=== PATIENT | female | born 1980 | race Caucasian/White ===

== ENCOUNTER → 2018-05-30 12:51 | Outpatient (CLI) | payer MEDICAID, SELFPAY ==
--- NOTE | 2018-05-30 12:53 | RAD_ITS ---
STUDY: X-RAY - RIGHT SHOULDER REASON FOR EXAM: Pain. TECHNIQUE: 4 view(s) of the shoulder. COMPARISON: Radiographs 09/30/2015. FINDINGS: Normal glenohumeral articulation. Normal acromioclavicular joint. Normal acromion. Normal humeral head and visualized proximal humerus. There is calcific tendinitis, larger than on the prior study. Normal visualized pulmonary apex. RAD/Shoulder min 2 Views IMPRESSION: Calcific tendinitis. Electronically Signed: Jas Buck MD at 14:43 EDT Tel , Service support ,
== END ==
PROVIDERS: Family Provider Orthopaedic Surgery; PCP Orthopaedic Surgery; Referring Provider Orthopaedic Surgery; Visit Provider Orthopaedic Surgery
DX: M75.31 Calcific tendinitis of right shoulder (principal)
CPT/HCPCS: 73030

== ENCOUNTER → 2018-05-30 12:55 | Outpatient (CLI) | payer MEDICAID, SELFPAY ==
--- NOTE | 2018-05-30 12:55 | RAD_ITS ---
STUDY: X-RAY - CERVICAL SPINE REASON FOR EXAM: Female, 37 years old. Pain. TECHNIQUE: 3 view(s) of the cervical spine were obtained. COMPARISON: None FINDINGS: Normal anterior atlantoaxial articulation. Normal odontoid process. Normal cervical lordosis. Normal vertebral bodies and endplates. Normal disc space heights. The soft tissue structures are unremarkable. There is no demonstrated fracture of the cervical spine. RAD/Cerv Spine 2 or 3 Views IMPRESSION: Normal x-ray examination of the visualized cervical spine. Electronically Signed: Davis Tobias MD at 19:57 EDT , Service support ,
== END ==
PROVIDERS: Family Provider Orthopaedic Surgery; PCP Orthopaedic Surgery; Referring Provider Orthopaedic Surgery; Visit Provider Orthopaedic Surgery
DX: M54.2 Cervicalgia (principal); M75.31 Calcific tendinitis of right shoulder
CPT/HCPCS: 72040; 73030

== ENCOUNTER → 2018-09-26 17:07 | Outpatient (CLI) | payer MEDICAID, SELFPAY ==
[2018-09-12 15:16] VITALS: BMI 25.3
--- NOTE | 2018-09-26 17:08 | MRI_ITS ---
STUDY: MRI RIGHT SHOULDER REASON FOR EXAM: Pain since injury in 2007, unable to abduct arm. TECHNIQUE: Standardized fat and water weighted pulse sequences were obtained in all 3 orthogonal planes. COMPARISON: Radiographs 05/30/2018 and MRI images 09/30/2015. FINDINGS: There is a signal void in the supraspinatus tendon (proton density coronal images 12, 13) measuring approximately 1 cm in length, mildly increased in size since the prior study with very mild adjacent inflammation (T2 coronal images 11-13). There is no discrete tear of the supraspinatus tendon. Normal infraspinatus tendon. Normal subscapularis tendon. Normal teres minor tendon. Normal supraspinatus muscle. Normal infraspinatus muscle. Normal subscapularis muscle. Normal teres minor muscle. Normal glenohumeral articulation. There is mild cystic change of the posterior aspect of the greater tuberosity. Normal biceps labral complex. Normal intracapsular long biceps tendon. Normal labrum. Normal capsulo- ligamentous complex. Normal acromioclavicular articulation. There is a Type II morphology (curved), with a neutral orientation. There is no subacromial-subdeltoid bursal fluid. Normal visualized coracohumeral and coracoacromial ligaments. Normal deltoid muscle. Normal trapezius muscle. MRI/Upper Ext Joint Only(Routine) IMPRESSION: Supraspinatus calcific tendinitis. No demonstrated rotator cuff tear. Electronically Signed: Jas Buck MD at 7:35 EDT Tel , Service support ,
== END ==
PROVIDERS: Family Provider Orthopaedic Surgery; PCP Orthopaedic Surgery; Referring Provider Orthopaedic Surgery; Visit Provider Orthopaedic Surgery
DX: M75.101 Unspecified rotator cuff tear or rupture of right shoulder, not specified as traumatic (principal)
CPT/HCPCS: 73221

== ENCOUNTER → 2018-10-01 09:48 | Outpatient (CLI) | payer MEDICAID, SELFPAY ==
[2018-10-01 09:14] VITALS: BMI 25.3
--- NOTE | 2018-10-01 09:49 | RAD_ITS ---
STUDY: X-RAY - CERVICAL SPINE REASON FOR EXAM: Female, 38 years old. Shoulder pain with right sided numbness. TECHNIQUE: 3 view(s) of the cervical spine were obtained on 4 images. COMPARISON: May 30, 2018 FINDINGS: Normal anterior atlantoaxial articulation. Normal odontoid process. Normal cervical lordosis. Normal vertebral bodies and endplates. Normal disc space heights. Normal visualized intervertebral neuroforamina. The soft tissue structures are unremarkable. RAD/Cerv Spine 2 or 3 Views IMPRESSION: Normal x-ray examination of the visualized cervical spine. Electronically Signed: Tank Alcocer MD at 11:28 EDT , Service support ,
== END ==
PROVIDERS: Family Provider Orthopaedic Surgery; PCP Orthopaedic Surgery; Referring Provider Orthopaedic Surgery; Visit Provider Orthopaedic Surgery
DX: M54.12 Radiculopathy, cervical region (principal)
CPT/HCPCS: 72040

== ENCOUNTER → 2018-10-09 11:03 | Outpatient (CLI) | payer MEDICAID, SELFPAY ==
[2018-10-01 09:14] VITALS: BMI 25.3
--- NOTE | 2018-10-09 11:06 | MRI_ITS ---
STUDY: MRI CERVICAL SPINE WITHOUT CONTRAST REASON FOR EXAM: Female, 38 years old. Neck pain, right arm pain and numbness and radiculopathy. TECHNIQUE: Standardized fat and water weighted pulse sequences were obtained in the sagittal and axial planes. COMPARISON: None FINDINGS: Normal foramen magnum and brainstem-cervical cord junction. Normal craniovertebral junction. Normal anterior atlantoaxial articulation. Normal odontoid process. Normal cervical lordosis. Normal vertebral bodies and posterior osseous elements. C2-3: Normal endplates. Normal disc height, signal and morphology. Normal central canal and intervertebral neural foramina. C3-4: Normal endplates. Normal disc height, signal and morphology. Normal central canal and intervertebral neural foramina. C4-5: Normal endplates. Normal disc height, signal and morphology. Normal central canal and intervertebral neural foramina. C5-6: Normal endplates. Normal disc height, signal and morphology. Normal central canal and intervertebral neural foramina. C6-7: Normal endplates. Normal disc height, signal and morphology. Normal central canal and intervertebral neural foramina. C7-T1: Normal endplates. Normal disc height, signal and morphology. Normal central canal and intervertebral neural foramina. Normal cervical cord. Normal visualized soft tissue structures. MRI/Spine Cervical (Routine) IMPRESSION: Normal unenhanced MR examination of the cervical spine. Electronically Signed: Ronni Coombs MD at 12:23 EDT Tel , Service support ,
== END ==
PROVIDERS: Family Provider Orthopaedic Surgery; PCP Orthopaedic Surgery; Referring Provider Orthopaedic Surgery; Visit Provider Orthopaedic Surgery
DX: M54.12 Radiculopathy, cervical region (principal)
CPT/HCPCS: 72141

== ENCOUNTER → 2018-11-13 07:15 | Outpatient (CLI) | payer MEDICAID, SELFPAY ==
[2018-10-11 09:23] VITALS: BMI 25.3
--- NOTE | 2018-11-13 10:00 | NEURO_ITS ---
NCS and/or EMG Patient Report Ordering Doctor: Barb Sanders DATE OF SERVICE: 11/13/18 This is a right upper extremity EMG and nerve conduction study performed on this 38-year-old female with numbness tingling and pain from her shoulder into her arm. Symptoms have been present since 2007, but became significantly worse several months ago for unclear reasons. She is healthy otherwise. Right upper extremity sensory and motor nerve conduction studies performed demonstrating mild to moderate prolongation of the median motor and sensory distal latency with preservation of amplitude and conduction velocities. The ulnar motor and sensory and radial sensory responses are normal. The median F wave is mildly prolonged. Right upper extremity needle electromyography is performed. Muscles evaluated included the abductor pollicis brevis, first dorsal interosseous, brachioradialis, biceps, triceps and deltoid muscles. The abductor pollicis brevis muscle did demonstrate 1-2+ fibrillation potentials with early recruitment and large motor units. All other C8 muscles were normal and all other muscles demonstrated normal insertional activity with absence of pathologic spontaneous activity. Impression: Findings consistent with moderate active carpal tunnel syndrome at the wrist. There is no evidence of radiculopathy. Dictated using [employer] software, not proofread
== END ==
PROVIDERS: Family Provider Family Medicine; PCP Family Medicine; Referring Provider Orthopaedic Surgery; Visit Provider Orthopaedic Surgery
DX: M54.12 Radiculopathy, cervical region (principal)
CPT/HCPCS: 95886; 95910

== ENCOUNTER 2018-12-11 06:26 | Day surgery (SDC) | payer MEDICAID, SELFPAY ==
[2018-11-15 09:50] VITALS: BMI 25.3
--- NOTE | 2018-11-15 11:34 | HP_ITS ---
Intake Vital Signs 11/14/18 Body Mass Index (BMI) 47.7 11/14/18 Height 5 ft 2 in 11/14/18 Weight: 253 lb 11/14/18 Body Mass Index (BMI) 46.3 11/14/18 Blood Pressure 141/82 H 11/14/18 Blood Pressure Location Rt brachial 11/14/18 Blood Pressure Position Sitting 11/14/18 Respiratory Rate 16 11/14/18 Pulse Rate 92 11/14/18 Pulse Source Monitor 11/14/18 Temperature 97.9 F 11/14/18 Temperature Source Oral 11/14/18 Pulse Ox 96 11/14/18 Oxygen Delivery Method room air Intake Visit Reasons: EGD & C-Scope Anemia Chief Complaint: Referred for anemia evaluation. Continuity Coordinator Required: No Is patient in pain?: No Allergies adhesive Allergy (Verified 11/14/18 14:31) Rash Penicillins [PCN] Allergy (Verified 11/14/18 14:31) Swelling Medications Gabapentin [Neurontin] 600 mg PO BID 07/11/14 [History Confirmed 11/14/18] Simvastatin 10 mg PO DAILY 07/11/14 [History Confirmed 11/14/18] Albuterol IH (ProAir) [Proair Hfa] 1 puff INHALATION Q6H PRN PRN 02/10/15 [History Confirmed 11/14/18] Allopurinol [Zyloprim] 100 mg PO DAILY 02/10/15 [History Confirmed 11/14/18] Apixaban [Eliquis] 5 mg PO BID #60 tab 02/11/15 [Rx Confirmed 11/14/18] Omeprazole [Prilosec] 20 mg PO DAILY 07/09/16 [History Confirmed 11/14/18] Lisinopril [Zestril] 10 mg PO DAILY #30 tab 07/13/16 [Rx Confirmed 11/14/18] Cyanocobalamin (Vitamin B-12) [B-12 Compliance] 1,000 mcg SUBCUT QMONTH 09/30/16 [History Confirmed 11/14/18] Diclofenac Sodium 25 mg PO TID 11/13/18 [History Confirmed 11/14/18] Iron Polysaccharide Complex [Ferrex 150] 150 mg PO DAILY 11/13/18 [History Confirmed 11/14/18] Levothyroxine [Synthroid] 125 mcg PO DAILY 11/13/18 [History Confirmed 11/14/18] Potassium Chloride [Klor-Con 10] 10 meq PO DAILY 11/13/18 [History Confirmed 11/14/18] Vancomycin [Vancocin] 125 mg PO Q6H 11/13/18 [History Confirmed 11/14/18] metroNIDAZOLE [Flagyl] 500 mg PO Q8H 11/13/18 [History Confirmed 11/14/18] PFSH Medical History Hypertension (Chronic) Sjogrens syndrome (Chronic) Chronic kidney disease (CKD), stage III (moderate) (Chronic) History of fibromyalgia (Chronic) Pulmonary embolism, bilateral (Chronic) Right ventricular dysfunction (Chronic) Pulmonary HTN (Chronic) Hyponatremia (Acute) Nausea & vomiting (Acute) Morbid obesity with BMI of 45.0-49.9, adult (Chronic) Hypothyroidism (Chronic) Hyperuricemia (Chronic) HLD (hyperlipidemia) (Chronic) Anemia (Chronic) Diarrhea with dehydration (Acute) Surgical History Hx of cholecystectomy (Acute) Hx of appendectomy (Acute) History of carpal tunnel release of both wrists (Acute) Hx of tubal ligation (Acute) Hx of arthroscopic knee surgery (Acute) Family History Brother Bone cancer Sister Lung cancer Sister Cervical cancer Hypertension Mother Uterine cancer Father Hypertension Myocardial infarction Brother Myocardial infarction Social History (Updated 11/15/18 @ 13:33 by Matt Allen MD) Smoking Status: Never smoker second hand exposure: No alcohol intake: never substance use type: does not use caffeine: Yes what type of physical activity do you participate in: none frequency: does not exercise HPI HPI HPI: BREANNE MCNAMARA, is a 74 F who presents to the office today for HPI HPI Surgical H&P: Yes HPI: BREANNE MCNAMARA, is a 74 F who presents to the office today for iron deficiency anemia. Patient reports she was very tired and fatigued and had been found to have anemia. Patient noticed some blood today in her stool but this is the first time. Her last colonoscopy was over 10 years ago. She has had an EGD in the past with does not run or when. She denies family history of colon cancer. She is currently being treated for C. 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 ROS General General: Yes weight change and fatigue Musc Musculoskeletal: Yes back problems, arthritis and gout Cardio Cardiovascular: Yes high blood pressure; no murmur, pacemaker, heart disease, atrial fibrillation, heart attack, heart stent, palpitations, shortness of breat with exertion or chest pain Psych Psychiatric: No depression or anxiety Resp Respiratory: Yes shortness of breath, No sleep apnea, Yes cough, No COPD, No asthma, No emphysema, No wheezing Gastro Gastrointestinal: Yes abdominal pain, Yes nausea or vomiting, No diarrhea, No constipation, Yes blood in stool, Yes acid reflux, Yes hemorrhoids, No ulcers, No gallbladder problem, No black,tarry stools Neel Hematologic: Yes blood thinners, Yes blood clots Exam Const General: cooperative Orientation: alert, oriented x3 Resp Effort & Inspection: normal respiratory effort Auscultation: clear to auscultation bilaterally Cardio Rate: regular rate Rhythm: regular rhythm Heart Sounds: no murmurs GI Inspection: non-distended Palpation: soft, nontender Assessment & Plan Problems 1. Anemia, unspecified type D64.9 Plan The patient has iron deficiency anemia and is requiring upper and lower scope to evaluate. Currently the patient is being treated for C. difficile. She says her stools have been thickening but she is still having soft stool. The patient notes that she has come off of her blood thinner in the past for back injections. I have advised her to hold these blood thinners for 2 days prior to endoscopy. I explained endoscopy in detail to the patient. I explained the risks including but not limited to stroke or heart attack with anesthesia, perforation of the GI tract, bleeding, infection. I explained that any of these could necessitate further emergency surgery. The patient understands and all questions were answered sufficiently. The patient wishes to proceed with procedure. I would like to hold off on performing endoscopy until at least 3 weeks from now when the inflammation in her colon has subsided. Matt Allen MD Pager: [facility] [address] [place] [address], [address] [place] [address] Office: Orders Orders: Colonoscopy Today D64.9 EGD Today D64.9 Coding Level of Care Code Off vis,new,level 3 Diagnoses Anemia, unspecified type D64.9 ??Anemia type: unspecified type 11/15/18 1333 <Electronically signed by Matt crump MD> Date _ Matt Allen MD
[2018-12-09 13:40] LABS: Hematocrit 37.1 % (37-47); Hemoglobin 11.5 g/dL (12.0-15.0); Mean Corpuscular Hgb 27.2 pg (27.0-32.0); Mean Corpuscular Volume 87.7 fL (81-99); Platelet Count 341 K/mm3 (150-450); RBC Distribution Width CV 13.8 % (11.6-14.6); RBC Distribution Width SD 44.2 fl (35.1-43.9); Red Blood Count 4.23 M/mm3 (4.2-5.4); White Blood Count 5.3 K/mm3 (4.4-11.0)
[2018-12-09 13:48] LABS: International Normalized Ratio 1.2; Prothrombin Time (Protime)PT. 14.9 SECONDS (11.7-14.9)
[2018-12-09 13:49] LABS: Partial Thromboplast Time 36.8 Seconds (24.1-36.2)
[2018-12-09 14:19] LABS: AST(SGOT) 16 U/L (15-37); Alanine Aminotransfer ALT/SGPT 17 U/L (13-56); Alkaline Phosphatase 56 U/L (45-117); Bilirubin, Direct 0.14 mg/dL (0.00-0.30); Globulin 3.9 g/dL (2.2-4.2); Protein, Total 7.9 g/dL (6.4-8.2); Thyroid Stim Hormone (TSH) 2.74 uIU/mL (0.358-3.74)
[2018-12-11] VITALS (9 sets, daily range): BP systolic 98–132; BP diastolic 68–95; PULSE 77–113; RESP 16; TEMP 36.4–37.1; O2SAT 96–100; BMI 24.4
[2018-12-11 06:58] LABS: Internal QC Validated? YES +Cl - CLEAR BKGD; Pregnancy, Urine Negative Negative
[2018-12-11] MEDS: Lactated Ringers 1,000 ML 100 ML IV ×2 (07:03→10:18)
[2018-12-11] MEDS: Cefazolin 2 GM in 0.9% Normal Saline 100 ML IV (07:54)
--- NOTE | 2018-12-11 08:02 | HP.PCM_ITS ---
History and Physical [facility] Medical Records Department [address] [place] [address] I have re-examined the patient. There are no clinical changes since date of exam. History and Physical 11/15/18 1134 MR#: [id number] Acct: [id number] Name: EMILY MURRAY Rep #: [id number] : 1980 38 From: Barb Sanders DO PCP: Kiera Murray MD Status: PRE SDC Location: SDC Intake Vital Signs 11/14/18 Body Mass Index (BMI) 47.7 11/14/18 Height 5 ft 2 in 11/14/18 Weight: 253 lb 11/14/18 Body Mass Index (BMI) 46.3 11/14/18 Blood Pressure 141/82 H 11/14/18 Blood Pressure Location Rt brachial 11/14/18 Blood Pressure Position Sitting 11/14/18 Respiratory Rate 16 11/14/18 Pulse Rate 92 11/14/18 Pulse Source Monitor 11/14/18 Temperature 97.9 F 11/14/18 Temperature Source Oral 11/14/18 Pulse Ox 96 11/14/18 Oxygen Delivery Method room air Intake Visit Reasons: EGD & C-Scope Anemia Chief Complaint: Referred for anemia evaluation. Truer Pinion And Wheel Required: No Is patient in pain?: No Allergies adhesive Allergy (Verified 11/14/18 14:31) Rash Penicillins [PCN] Allergy (Verified 11/14/18 14:31) Swelling Medications Gabapentin [Neurontin] 600 mg PO BID 07/11/14 [History Confirmed 11/14/18] Simvastatin 10 mg PO DAILY 07/11/14 [History Confirmed 11/14/18] Albuterol IH (ProAir) [Proair Hfa] 1 puff INHALATION Q6H PRN PRN 02/10/15 [History Confirmed ] Allopurinol [Zyloprim] 100 mg PO DAILY 02/10/15 [History Confirmed 11/14/18] Apixaban [Eliquis] 5 mg PO BID #60 tab 02/11/15 [Rx Confirmed 11/14/18] Omeprazole [Prilosec] 20 mg PO DAILY 07/09/16 [History Confirmed 11/14/18] Lisinopril [Zestril] 10 mg PO DAILY #30 tab 07/13/16 [Rx Confirmed 11/14/18] 1
--- NOTE | 2018-12-11 08:03 | PCM.DC.ORTHO ---
Discharge Diet: No Restrictions - follow up on sunday for dressing change and brace adjustment, call with concerns, move elbow and hand as tolerated, call with concerns Discharge Activity: May Not Drive May shower in (days): 1 Ice area for (Minutes): 20 - Every hour while awake. Weight Bearing Status: Weight bearing as tolerated Keep extremity elevated above heart level: Operative Extremity Call your doctor if your incision/area has: Continuous Slow Oozing, Sudden Increased Bleeding, Increased Pain/ Swelling, Increased Redness, Foul Smelling Discharge Call your doctor if you observe: Fever of 101 or Higher, Coldness, Increased Pain, Numbness or Tingling, Change in Color, Calf discomfort Allergies/Adverse Reactions: Allergies hydrocodone [From Vicodin] Adverse Reaction (Severe, Unverified 12/11/18 06:51) Itching Medications to take at Discharge gabapentin 300 mg capsule 300 mg PO QHS 10/11/18 omeprazole 40 mg capsule,delayed release 40 mg PO QHS #30 cap 10/11/18 Acetaminophen [Tylenol Extra Strength] 500 - 1,000 mg PO Q6H PRN PRN 12/04/18 Oxycodone HCl/Acetaminophen [Percocet 5/325] 1 - 2 tab PO Q6H PRN PRN 5 Days #28 tab 12/11/18 Zolpidem Tartrate [Ambien (Generic)] 5 mg PO QHS PRN PRN #14 tab 12/11/18 The following prescriptions were given: Zolpidem Tartrate [Ambien (Generic)] 5 mg PO QHS PRN PRN #14 tab PRN Reason: Insomnia Transmission Status: Received by [facility] Oxycodone HCl/Acetaminophen [Percocet 5/325] 1 - 2 tab PO Q6H PRN PRN 5 Days #28 tab PRN Reason: Pain Transmission Status: Received by [facility] Primary Care Physician: Kiera Murray MD [Primary Care Provider] - Test Results: Test results from this visit will be discussed in further detail at your follow-up appointment, if applicable. Please Follow Up With: Barb Sanders, DO - [phone]
--- NOTE | 2018-12-11 08:03 | PCM.OPRPT ---
Report of Operation Date of Procedure: 12/11/18 Pre-Operative Diagnosis: right shoulder calcific tendinitis Post-Operative Diagnosis: same Surgery/Procedure Performed:: right shoulder arthroscopy, calcific tendinitis debridement, rotator cuff repair Type of Anesthesia:: General, General/Regional Anesthesiologist: Umair Can Estimated Blood Loss (mL): minimal Fluids Replaced: 700cc lr Description of Procedure: Preop note Patient is a 38-year-old female with continued right shoulder pain recalcitrant to injections and conservative treatment. MRI confirms calcific tendinitis in the supraspinatus. Risk benefits and alternatives were discussed with patient. Risks including but not limited to blood loss, blood clot, infection, neurovascular, failure procedure, loss of life and loss of limb. Patient is aware like proceed with right calcific tendinitis debridement possible rotator cuff repair after debridement of calcific tendinitis of leave the hole in the rotator cuff. Operative note Patient seen and examined preoperative holding area. Right shoulder was marked. Patient brought to the operating room and placed supine on the operating table. Signed, anesthesia, antibiotics were administered. The right arm was prepped and draped in usual sterile fashion after beachchair beachchair positioning was maintained. [place] through beachchair position we did recheck her blood pressure which was appropriately treated. All bony promises well-padded SCDs placed on her bilateral lower externally's. We then marked out a bony [place] for portal placement. We insufflated the posterior glenohumeral joints with 60 cc of normal saline. Please note the prior to that timeout was performed. We then began a diagnostic arthroscopy. We created our left posterior portal with 11 blade the glenohumeral joint was intact there were no loose bodies in the inferior recess. The anterior portal was created created under direct visualization. The subscap was intact to probing. The biceps was intact and stable probing. There were no other issues intra-articular. The moved the scope into the subacromial space it was difficult to get into the subacromial space due to the amount of bursitis which was extensive throughout. Created a lateral portal under direct visualization. Was hyperemic and thickened throughout. We then resected the bursa we able to visualize the rotator cuff we then palpated to find the calcific deposit which was palpated and then we used a shaver to debride the about a centimeter centimeter half area of calcific tendinitis. When this was successfully resected we had a pretty large hole in the rotator cuff. We then placed sutures between the edges of the rotator cuff and then brought this down to a swivel lock laterally. The shoulder was irrigated with copious nonsterile saline. All bleeders were coagulated then were encountered. Sterile dressings were applied after the portals were closed with interrupted nylon sutures. Sling was applied to the right arm next Postoperative note Pain and Ambien prescriptions at Hospital pharmacy We will give pictures to family in 2 weeks Follow-up on Sunday with Clarence Call with increased pain numbness tingling or further issues arise This note was generated with [employer] dictation software. It may contain incorrect words, spelling, and punctuation that were not noted in checking the note before signing.
[2018-12-11] MEDS: Mupirocin Ointment 22gm Tube 1 APPLIC (09:14)
--- NOTE | 2018-12-11 09:18 | PCM.HP.BLA ---
History and Physical Intake I have re-examined the patient. There are no clinical changes since date of exam. Vital Signs 10/01/18 Body Mass Index (BMI) 25.3 Intake Visit Reasons: R. SHOULDER Chief Complaint: Excessive menstrual bleeding Allergies acetaminophen [From Vicodin] Adverse Reaction (Severe, Unverified 02/15/17 10:10) Itching hydrocodone [From Vicodin] Adverse Reaction (Severe, Unverified 02/15/17 10:10) Itching PFSH Medical History (Updated 03/12/17 @ 14:56 by Ruddy Posada MD) H/O tooth extraction (Acute) Miscarriage (Acute) No known problems (Acute) Surgical History (Updated 02/15/17 @ 10:27 by Aury Moreno) No history of previous surgery (Acute) Family History (Updated 02/14/17 @ 14:18 by Jina Munoz) Father Lung cancer Brother Cancer Sister Cancer Social History (Updated 10/01/18 @ 14:38 by Barb Sanders DO) Smoking Status: Never smoker HPI R. SHOULDER: Details: Parts of this documentation were recorded by a scribe, this documentation accurately reflects the service provided and the decisions made by me, Barb Sanders DO 10/01/18 0911. EMILY AHMADI is a 38 year old F here today for F/U after having right shoulder MRI completed. Patient states that she is still have intense anterior shoulder pain. States she does occasionally have numbness/tingling that readiates down into her hand and states that is she tries to hold anything with her right arm she has noted weakness. ROS Const Reports system reviewed and no additional complaints, except as docu Eyes Reports system reviewed and no additional complaints, except as docu ENT Reports system reviewed and no additional complaints, except as docu Card Reports system reviewed and no additional complaints, except as docu Resp Reports system reviewed and no additional complaints, except as docu GI Reports system reviewed and no additional complaints, except as docu Musc Reports as per HPI Skin/Breast Reports system reviewed and no additional complaints, except as docu Neuro Yes system reviewed and no additional complaints, except as docu Psych Reports system reviewed and no additional complaints, except as docu Endo Reports system reviewed and no additional complaints, except as docu Neel/Lymph Reports system reviewed and no additional complaints, except as docu Aller/Immun Reports system reviewed and no additional complaints, except as docu Ortho Exam Right Shoulder Testing: Positive Hawkin's and PROM-Forward Elevation 0-180; negative AROM-Forward Elevation 0-180 Assessment & Plan Problems 1. Calcific tendinitis of right shoulder M75.31 2. Cervical radicular pain M54.12 Plan Personally reviewed the MRI and explained she has calcific tendonitis, her treatment options are do nothing, steroid injection, shoulder arthroscopy for debridement. Reviewed the possibility of needing a repair if the debridement of the calcium is too great. Patient elects to proceed with another injection but due to the radiating pain we will order neck xrays and an MRI prior to surgery for the shoulder as her radiculopathy is getting worse, weakness, and exercises have not helped recentlly. Follow up after mri of c spine or sooner if pain, swelling, numbness or associated symptoms, or concerns develop. All questions answered. Patient in agreement of plan. Orders Orders: Cerv Spine 2 or 3 Views Today M54.12 Spine Cervical (Routine) Today M54.12 Coding Level of Care Code Off vis,est,level 4 Diagnoses Calcific tendinitis of right shoulder M75.31 Cervical radicular pain M54.12
[2018-12-11] MEDS: dexAMETHasone 10 MG/ML Vial 8 MG IV (12:03)
== END 2018-12-11 16:40 | disposition home or self-care (01) ==
LOC: SDC 06:27 → AC 06:28
PROVIDERS: Anesthesiology; Family Provider Family Medicine; PCP Family Medicine; Referring Provider Orthopaedic Surgery; Visit Provider Orthopaedic Surgery
PROC: (CPT 29827; principal; 2018-12-11 07:40)
DX: M75.31 Calcific tendinitis of right shoulder (principal); M54.12 Radiculopathy, cervical region; K21.9 Gastro-esophageal reflux disease without esophagitis; E05.90 Thyrotoxicosis, unspecified without thyrotoxic crisis or storm
CPT/HCPCS: 01630; 29827; 64415; 36415; 80076; 81025; 84443; 85027; 85610; 85730; J7120; J2405

== ENCOUNTER 2018-12-13 13:22 | Observation (INO) | payer MEDICAID, SELFPAY ==
[2018-12-11 06:52] VITALS: BMI 24.4
[2018-12-13] VITALS (8 sets, daily range): BP systolic 109–139; BP diastolic 61–100; PULSE 67–112; RESP 16–18; TEMP 36.8; O2SAT 96–100; BMI 23.8; BMI 24.7; BMI 24.6
--- NOTE | 2018-12-13 13:50 | ED.DCSUM_ITS ---
- ER Visit Summary Date of Service: 12/13/18 Chief Complaint: Dizziness History of Present Illness: The patient is a 38 F presenting with dizziness, nausea. Patient states this started early this morning. She had right rotator cuff surgery on Sunday per Dr. Sanders. She has been taking Percocet wh ich has been controlling her pain. She complains of nausea and dry heaves. She denies chest pain or shortness of breath. Denies syncope. Denies other complaints. Physical Examination: Vitals are stable. Patient is afebrile. Alert no acute distress. HEENT exam is unremarkable. Neck is supple. Lungs are clear and equal bilaterally. Heart is regular rate and rhythm. Abdomen is soft nontender nondistended. Extremities right shoulder dressing clean dry and intact. Neurovascularly intact distally Skin is warm and dry. No focal neurologic deficit. Remainder of exam is unremarkable. Emergency Department Course and Treatment: Patient was given IV fluids, Zofran. EKG is sinus rate of 78 with no acute ischemic changes. CBC normal except for hemoglobin 10.5 which is near her baseline. Chemistries normal except for potassium 3.4. Troponin is negative. Patient continues to be dizzy and nauseated. She is given Phenergan. She is given additional IV fluids. With orthostatics her blood pressure remained stable and her heart rate increases. Discussed with the hospitalist for observation. Disposition: Observation Impression: Near syncope, intractable nausea This note was generated with [employer] dictation software. It may contain incorrect words, spelling, and punctuation that were not noted in review of the chart prior to signing ED Disposition - Plan for ED Patient:
--- NOTE | 2018-12-13 13:55 | NURSING ---
NO OLD EKGS
[2018-12-13] MEDS: Ondansetron 4 MG/2 ML Vial IV ×2 (14:10→18:50)
[2018-12-13] MEDS: 0.9% Normal Saline 1,000 ML 999 ML IV ×2 (14:10→16:10)
[2018-12-13 14:19] LABS: Absolute Lymphocyte Count 1.62 X10^3/uL (0.83-4.51); Absolute Neutrophil Count 3.3 X10^3/uL (2.0-7.7); Basophil# 0.04 X10^3/uL; Basophil% 0.7 % (0-1); Eosinophil# 0.04 X10^3/uL; Eosinophils% 0.7 % (0-5); Hematocrit 34.3 % (37-47); Hemoglobin 10.5 g/dL (12.0-15.0); Lymphocyte # 1.62 X10^3/ul (4.0); Lymphocyte % 29.8 % (19-41); Mean Corp Hgb Conc 30.6 g/dL (32-36); Mean Corpuscular Hgb 27.3 pg (27.0-32.0); Mean Corpuscular Volume 89.3 fL (81-99); Mean Platelet Vol. 9.7 fl (6.2-12.0); Monocyte% 7.4 % (0-10); NRBC Flagged by Analyzer 0 % (0-5); Neutrophil # 3.33 X10^3/uL (2.7-7.7); Neutrophil % 61.2 % (47-70); Platelet Count 272 K/mm3 (150-450); RBC Distribution Width CV 14.2 % (11.6-14.6); Red Blood Count 3.84 M/mm3 (4.2-5.4); White Blood Count 5.4 K/mm3 (4.4-11.0)
[2018-12-13] MEDS: Morphine 4 MG/ML Syringe IV (14:21)
[2018-12-13 14:35] LABS: Anion Gap 5 (5-15); BUN 5 mg/dL (7-18); BUN/Creat Ratio 6.9 RATIO (10-20); Calcium,Total 8.8 mg/dL (8.5-10.1); Chloride 105 mmol/L (98-107); Creatinine, Serum 0.72 mg/dL (0.55-1.02); EST Glomerular Filtration Rate 97 mL/min (>60); Est Glom Filt Rate - Afr Amer 118 mL/min (>60); Estimated Creatinine Clearance 85.43 ml/min; Glucose 97 mg/dL (74-106); Potassium 3.4 mmol/L (3.5-5.1); Sodium Level 141 mmol/L (136-145)
--- NOTE | 2018-12-13 14:55 | CT_ITS ---
STUDY: CTA CHEST REASON FOR EXAM: Female, 38 years old. Nausea and dizziness following recent rotator cuff surgery. RADIATION DOSAGE (If Supplied By Facility): CTDIvol = ( 10.22 ) mGy, DLP = ( 344.54 ) mGycm TECHNIQUE: The examination was performed with the intravenous administration of IV 100mL Isovue-370 100. Post-processing of the angiographic images was performed, with multiplanar reformation and 3D reconstruction. Individualized dose optimization techniques were used for this CT. COMPARISON: None. FINDINGS: Normal enhancement of the main pulmonary artery and right and left pulmonary arteries. Normal enhancement of the bilateral peripheral pulmonary arteries. There is no demonstrated pulmonary embolism. Normal thoracic aorta and visualized great vessels. There is no demonstrated aortic dissection. Normal heart and pericardium. Normal mediastinum. Normal hilar regions. Normal visualized trachea and bronchi. The lungs are well expanded. Normal pulmonary parenchyma. Minimal right pleural effusion and minimal right basilar atelectasis. Mild increased markings at the left lung base. Normal chest wall structures. Normal osseous structures. Small hiatal hernia. CT/CTA Chest W/WO Contrast IMPRESSION: Minimal bibasilar atelectasis and right pleural effusion. Electronically Signed: Chay Coello, at 15:40 EDT , Service support ,
[2018-12-13] MEDS: proMETHazine 25 MG/ML Syringe 6.25 MG IV (16:09)
--- NOTE | 2018-12-13 16:58 | NURSING ---
HOSPITALIST PAGED DR HAIRSTON CALLED BACK
--- NOTE | 2018-12-13 17:05 | NURSING ---
PCU DIZZINESS PAINTSIL
--- NOTE | 2018-12-13 17:20 | PCM.HP.STD ---
<Maynor Yip - Last Filed: 12/13/18 17:20> Problem List (1) Dizziness Status: Acute (2) Calcific tendinitis Status: Chronic (3) GERD (gastroesophageal reflux disease) Status: Chronic (4) VWD (von Willebrand's disease) Status: Chronic (5) Anemia Status: Chronic History of Present Illness Date of Admission: 12/13/18 Chief Complaint: dizziness The patient is a 38 year old F with pmhx of von willebrands disease, GERD, and calficic tendinosis of the right should post op rotator cuff repair POD#[address] Sanders, who presents to the ER with dizziness. This began this AM at about 3 AM. She woke up to use the bathroom and felt dizzy. After the surgery she was prescribed ambien, percocet, and gabapentin. Last night she did not take ambien, however she took two percocet and a gabapentin, this was the first time she had ever taken both percocet and gabapentin together. She has been dizzy all day with nausea and dry heaving. She describes the sensation as feeling like she might pass out. She denies spinning, denies tinnitus. She was orthostatic positive by pulse in the ER. CTA was negative for PE and trop was negative. [] Past Medical History Past Medical History (Chronic Problems): Chronic Problems (Last Updated 02/15/17 @ 11:46 by Aury Moreno) Calcific tendinitis (Chronic) GERD (gastroesophageal reflux disease) (Chronic) VWD (von Willebrand's disease) (Chronic) Iron deficiency anemia (Chronic) Anemia (Chronic) Medical History: Medical History (Last Updated 02/15/17 @ 11:46 by Aury Moreno) H/O tooth extraction K08.409 Miscarriage O03.9 No known problems Z78.9 Allergies hydrocodone [From Vicodin] Adverse Reaction (Severe, Verified 12/13/18 14:09) Itching Home Medications: Ambulatory Orders Medication Instructions Recorded gabapentin 300 mg capsule 300 mg PO QHS 10/11/18 omeprazole 40 mg capsule,delayed 40 mg PO QHS #30 cap 10/11/18 release Acetaminophen [Tylenol Extra 500 - 1,000 mg PO Q6H PRN PRN 12/04/18 Strength] Oxycodone HCl/Acetaminophen 1 - 2 tab PO Q6H PRN PRN 5 Days 12/11/18 [Percocet 5/325] #28 tab Zolpidem Tartrate [Ambien 5 mg PO QHS PRN PRN #14 tab 12/11/18 (Generic)] Surgical History: Surgical History (Last Updated 02/15/17 @ 10:27 by Aury Moreno) No history of previous surgery Psychiatric History: No pertinent psych hx 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 Lives: With Family Smoking Status: Never smoker Tobacco Use: Non-smoker Alcohol: None Drugs: None Review of Systems Constitutional: Denies: Chills, Fever, Weight Change HEENT: Denies: Head Aches, Sinus Congestion, Sinus Drainage Cardiovascular: Denies: Chest Pain, Palpitations Respiratory: Denies: Cough, Shortness of breath at rest, Sputum production Gastrointestinal: Denies: Abdominal Pain, Nausea, Vomiting Genitourinary: Denies: Dysuria Musculoskeletal: Denies: Joint Pain, Joint Tenderness Skin: Denies: Rash, Wounds Neurological: Denies: Numbness, Tingling, Focal weakness Psychiatric: Denies: Anxiety, Depression, Homicidal Ideations, Suicidal Ideations Hematologic/ Lymphatic: Denies: Easy Bruising, Easy Bleeding VTE Information - Inpt Only VTE Present on Admission: No VTE Mechan Device Prophylaxis: None VTE Pharm Prophylaxis ordered?: Yes Patient Problems: Active and Suspected Problems (Last Updated 02/15/17 @ 11:46 by Aury Moreno) Dizziness (Acute) - Physical Exam General: Alert, Oriented x3, Cooperative HEENT: Atraumatic, PERRLA, EOMI, Normocephalic Neck: Supple, No JVD, Negative Carotid Bruits Lungs: Clear to auscultation, Normal air movement Cardiovascular: Regular rate, No murmurs Abdomen: Bowel Sounds Present, Soft, Non Tender Extremities: No edema, Capillary Refill Less than 3 Seconds Skin: No rashes, No breakdown Musculoskeletal: No Tenderness to Palpation of Joints or Extremities Neurological: Cranial nerves II-XII grossly intact Psych/Mental Status: Normal Affect, Appropriate, Alert and oriented to time, place, person, mood and affect Vital Signs Temp Pulse Resp BP Pulse Ox 98.3 F 84 18 125/88 H 100 12/13/18 13:23 12/13/18 16:03 12/13/18 16:02 12/13/18 16:03 12/13/18 16:02 Oxygen Delivery Method Room Air Weight: 130 lb Body Mass Index (BMI) 23.8 Intake and Output for Last 24 Hours 12/11/18 12/12/18 12/13/18 23:59 23:59 23:59 Intake Total 1000 / 1000 Balance 1000 / 1000 Laboratory Tests Past 24 Hrs 12/13/18 12/13/18 14:12 14:12 WBC 5.4 RBC 3.84 L Hgb 10.5 L Hct 34.3 L MCV 89.3 MCH 27.3 MCHC 30.6 L RDW Std Deviation 46.0 H RDW Coeff of Fede 14.2 Plt Count 272 MPV 9.7 Immature Gran % (Auto) 0.200 Neut % (Auto) 61.2 Lymph % (Auto) 29.8 [place] % (Auto) 7.4 Eos % (Auto) 0.7 Baso % (Auto) 0.7 Absolute Neuts (auto) 3.3 Absolute Lymphs (auto) 1.62 Nucleated RBC % 0 Sodium 141 Potassium 3.4 L Chloride 105 Carbon Dioxide 31.0 Anion Gap 5 BUN 5 L Creatinine 0.72 Estim Creat Clear Calc 85.43 Est GFR (MDRD) Af Amer 118 Est GFR (MDRD) Non-Af 97 BUN/Creatinine Ratio 6.9 L Glucose 97 Calcium 8.8 Troponin I < 0.015 Assessment/Plan All Active Problems (Last Updated 02/15/17 @ 11:46 by Aury Moreno) Dizziness (Acute) Prolonged PTT (partial thromboplastin time) (Acute) 1. Dizziness - suspect medication reaction to 2 percocets and gabapentin at the same time. She also appears somewhat dehydrated and has some tachy on orthos, also has had nausea and dry heaving throughout the day. IV fluids overnight, schedule tylenol, continue oxy and prn morphine. no gabapentin. EKG with sinus arrhythmia. Maintain on tele overnight in ICU. Repeat orthostatics in AM. 2. Calcific tendinitis - if pt here for extended admission will need Dr. Sanders to evaluate wound and dressings. 3. hx von willebrand 4. GERD - ppi DVT ppx: lovenox This patient was seen by Maynor Yip PA-C under the supervision of Dr. Deshpande. <Lucrecia Deshpande - Last Filed: 12/13/18 18:11> History of Present Illness The patient is a 38 year old F [] Past Medical History Medical History: Medical History (Last Updated 02/15/17 @ 11:46 by Aury Moreno) H/O tooth extraction K08.409 Miscarriage O03.9 No known problems Z78.9 Allergies hydrocodone [From Vicodin] Adverse Reaction (Severe, Verified 12/13/18 14:09) Itching Surgical History: Surgical History (Last Updated 02/15/17 @ 10:27 by Aury Moreno) No history of previous surgery - Physical Exam Vital Signs Temp Pulse Resp BP Pulse Ox 98.3 F 87 18 125/88 H 100 12/13/18 13:23 12/13/18 17:19 12/13/18 16:02 12/13/18 16:03 12/13/18 16:02 Oxygen Delivery Method Room Air Weight: 58.967 kg Body Mass Index (BMI) 23.8 Intake and Output for Last 24 Hours 12/11/18 12/12/18 12/13/18 23:59 23:59 23:59 Intake Total 1999 Balance 1999 Laboratory Tests Past 24 Hrs 12/13/18 12/13/18 14:12 14:12 WBC 5.4 RBC 3.84 L Hgb 10.5 L Hct 34.3 L MCV 89.3 MCH 27.3 MCHC 30.6 L RDW Std Deviation 46.0 H RDW Coeff of Fede 14.2 Plt Count 272 MPV 9.7 Immature Gran % (Auto) 0.200 Neut % (Auto) 61.2 Lymph % (Auto) 29.8 [place] % (Auto) 7.4 Eos % (Auto) 0.7 Baso % (Auto) 0.7 Absolute Neuts (auto) 3.3 Absolute Lymphs (auto) 1.62 Nucleated RBC % 0 Sodium 141 Potassium 3.4 L Chloride 105 Carbon Dioxide 31.0 Anion Gap 5 BUN 5 L Creatinine 0.72 Estim Creat Clear Calc 85.43 Est GFR (MDRD) Af Amer 118 Est GFR (MDRD) Non-Af 97 BUN/Creatinine Ratio 6.9 L Glucose 97 Calcium 8.8 Troponin I < 0.015 Assessment/Plan This patient was seen in conjunction with JOYCE Alcala. I have independently interviewed and examined the patient and reviewed pertinent historical, laboratory, and other data. Please refer to JOYCE Alcala note for his patient's presentation, findings, and recommendations. I have reviewed and his note and concur with his documentation 38-year-old female with past medical history of abnormal bleeding, possible von Willebrand's disease, GERD who had right shoulder arthroscopy, calcific tendinitis debridement, rotator cuff repair done on 12/11/18. She was discharged home on Percocet, Ambien and gabapentin. She however has been on the gabapentin and Percocet. Last night she took 2 Percocets with the gabapentin and went to sleep. She woke up at 3 AM to go to use the bathroom and felt very dizzy. She started having severe nausea and dry heaving this morning. Denied any fever or chills or chest pain or palpitations. She denies the sensation of room spinning. She feels like she is going to pass out. Orthostatic vitals in the ED were positive with regards to heart rate Admitting blood work was remarkable only for potassium 3.4. Hemoglobin was 10.5 Physical Exam: Gen: Looks in some discomfort, not pale, not jaundiced, right shoulder dressing is clean, dry, does not appear soaked CVS:HS I +II, regular, no murmurs RESP: CTA GI: BS present and normal, soft, nontender, no palpable organs EXT:No edema ASSESSMENT: 1. Dizziness likely medication related -patient took gabapentin and Percocet last night 2. Positive orthostatic vitals likely secondary to dehydration 3. Hypokalemia 4. Status post right shoulder arthroscopy for calcific tendinitis treatment, rotator cuff repair 5. GERD Plan: Admit to PCU, IV fluids Orthostatic vitals every shift Scheduled Tylenol, PRN oxycodone, PRN morphine Consider orthopedic consult if patient's stay will be prolonged in the hospital Hold gabapentin Continue on omeprazole Code Visit OBSV E&M: 76825 Initial observation care L2
[2018-12-13] MEDS: 0.9% Normal Saline 1,000 ML 150 ML IV (18:38)
[2018-12-13] MEDS: Morphine 2 MG/ML Syringe 1 MG IV (18:50)
[2018-12-13] MEDS: Pantoprazole Sodium 40 MG Tablet PO (21:33)
[2018-12-13] MEDS: Acetaminophen 500 MG Tablet 1000 MG PO (21:33)
[2018-12-14] MEDS: 0.9% Normal Saline 1,000 ML 150 ML IV (01:01)
[2018-12-14 02:59] VITALS: PULSE 80
[2018-12-14 03:30] VITALS: BP 113/77; PULSE 88; RESP 16; TEMP 36.7; O2SAT 97
[2018-12-14] MEDS: oxyCODONE 5 MG Tablet PO ×2 (04:09→10:41)
[2018-12-14 05:35] VITALS: BP 107/65; BP 114/75; BP 124/76; PULSE 82; PULSE 88; PULSE 90
[2018-12-14] MEDS: Acetaminophen 500 MG Tablet 1000 MG PO (05:43)
[2018-12-14] MEDS: Ondansetron 4 MG/2 ML Vial IV (05:47)
[2018-12-14 06:39] LABS: Absolute Lymphocyte Count 1.25 X10^3/uL (0.83-4.51); Absolute Neutrophil Count 3.2 X10^3/uL (2.0-7.7); Basophil# 0.04 X10^3/uL; Basophil% 0.8 % (0-1); Eosinophil# 0.07 X10^3/uL; Eosinophils% 1.4 % (0-5); Lymphocyte # 1.25 X10^3/ul (4.0); Lymphocyte % 25.3 % (19-41); Mean Corp Hgb Conc 30.3 g/dL (32-36); Mean Corpuscular Hgb 27.2 pg (27.0-32.0); Mean Corpuscular Volume 89.7 fL (81-99); Mean Platelet Vol. 10.5 fl (6.2-12.0); Monocyte% 8.1 % (0-10); NRBC Flagged by Analyzer 0 % (0-5); Neutrophil # 3.18 X10^3/uL (2.7-7.7); Neutrophil % 64.2 % (47-70); Platelet Count 271 K/mm3 (150-450); RBC Distribution Width CV 14.2 % (11.6-14.6); RBC Distribution Width SD 46.1 fl (35.1-43.9); Red Blood Count 3.68 M/mm3 (4.2-5.4)
[2018-12-14 07:00] VITALS: PULSE 85
[2018-12-14 07:09] LABS: AST(SGOT) 13 U/L (15-37); Alanine Aminotransfer ALT/SGPT 16 U/L (13-56); Albumin, Serum 3.2 g/dL (3.2-5.0); Alkaline Phosphatase 44 U/L (45-117); Anion Gap 5 (5-15); BUN 7 mg/dL (7-18); BUN/Creat Ratio 11.2 RATIO (10-20); Calcium,Total 8.3 mg/dL (8.5-10.1); Chloride 109 mmol/L (98-107); Creatinine, Serum 0.62 mg/dL (0.55-1.02); EST Glomerular Filtration Rate 115 mL/min (>60); Est Glom Filt Rate - Afr Amer 139 mL/min (>60); Estimated Creatinine Clearance 99.21 ml/min; Globulin 3.3 g/dL (2.2-4.2); Glucose 92 mg/dL (74-106); Potassium 4.2 mmol/L (3.5-5.1); Protein, Total 6.5 g/dL (6.4-8.2); Sodium Level 140 mmol/L (136-145)
--- NOTE | 2018-12-14 09:11 | DCINST_ITS ---
- Discharge Diagnoses Current Active Problems: Current Active and Chronic Problems (Last Updated 02/15/17 @ 11:46 by Aury Moreno) Calcific tendinitis (Chronic) GERD (gastroesophageal reflux disease) (Chronic) Dizziness (Acute) You will use the following diet at home:: Regular Your food should be the consistency of: Regular Your liquids should be the consistency of: Regular/Thin Discharge Activity: Return to Normal Activity Call your doctor if you observe: Fever of 101 or Higher, Shortness of breath, Dizziness, Fainting spells, Swelling in the ankles, Chest pain, Increased palpitations (irregular heartbeat) Allergies/Adverse Reactions: Allergies hydrocodone [From Vicodin] Adverse Reaction (Severe, Verified 12/13/18 14:09) Itching Medications to take at Discharge omeprazole 40 mg capsule,delayed release 40 mg PO QHS #30 cap 10/11/18 Acetaminophen [Tylenol] 500 - 1,000 mg PO Q6H PRN PRN 12/04/18 Oxycodone HCl/Acetaminophen [Percocet 5-325] 1 - 2 tab PO Q6H PRN PRN 5 Days #28 tab 12/11/18 Zolpidem Tartrate [Ambien] 5 mg PO QHS PRN PRN #14 tab 12/11/18 Primary Care Physician: Kiera Murray MD [Primary Care Provider] - Please follow up with your Primary Care Physician in: 3-5 days Test Results: Test results from this visit will be discussed in further detail at your follow- up appointment, if applicable.
--- NOTE | 2018-12-14 09:12 | DS.PCM_ITS ---
Discharge Date and Diagnosis - Problem List Patient Problems: Active and Suspected Problems (Last Updated 02/15/17 @ 11:46 by Aury Moreno) Dizziness (Acute) Date of Admission: 12/13/18 Date of Discharge: 12/14/18 - Primary Discharge Diagnosis Active and Suspected Problems (Last Updated 02/15/17 @ 11:46 by Aury Moreno) Dizziness (Acute) - Secondary Discharge Diagnosis Chronic Problems (Last Updated 02/15/17 @ 11:46 by Aury Moreno) Calcific tendinitis (Chronic) GERD (gastroesophageal reflux disease) (Chronic) VWD (von Willebrand's disease) (Chronic) Iron deficiency anemia (Chronic) Anemia (Chronic) Hospital Course and Treatment Imaging Results: CTA Chest: IMPRESSION: Minimal bibasilar atelectasis and right pleural effusion Consults: None Operations: None Procedures: None Summary of Care Provided: Per HPI: The patient is a 38 year old F with pmhx of von willebrands disease, GERD, and calficic tendinosis of the right should post op rotator cuff repair POD#[address] Sanders, who presents to the ER with dizziness. This began this AM at about 3 AM. She woke up to use the bathroom and felt dizzy. After the surgery she was prescribed ambien, percocet, and gabapentin. Last night she did not take ambien, however she took two percocet and a gabapentin, this was the first time she had ever taken both percocet and gabapentin together. She has been dizzy all day with nausea and dry heaving. She describes the sensation as feeling like she might pass out. She denies spinning, denies tinnitus. She was orthostatic positive by pulse in the ER. CTA was negative for PE and trop was negative. Hospital Course: 1. Pyxaxyidz-21-l[age]-old female with history of von Willebrand's disease and calcific tendinosis presented after having a rotator cuff repair 2 days ago. She took 2 Percocets and gabapentin the night before and when she woke up on the day of admission she was having significant dizziness as well as nausea and dry heaving throughout the day. In the ER her orthostatic vital signs were positive. She was started on IV fluids as well as a diet and on the day of discharge she says that her symptoms completely resolved and she would like to go home. Static vital signs on the day of discharge were normal. I discussed with her the risks and benefits of going home and she understood as did her mother. I did recommend that she discontinue the gabapentin since that was the medication she was taking for pain prior to having her rotator cuff surgery. She can continue her Percocets as needed for pain but I told her that she needs to remain hydrated and to take an adequate diet. 2. Her other medical diagnoses were evaluated and her home medications were continued where appropriate Patient Problems: Active and Suspected Problems (Last Updated 02/15/17 @ 11:46 by Aury Moreno) Dizziness (Acute) - Physical Exam General: Alert, Oriented x3, Cooperative, No apparent distress HEENT: Atraumatic, PERRLA, EOMI, Normocephalic Oral: Moist Mucosa Neck: Supple, No JVD Lungs: Clear to auscultation, Normal air movement, No rhonchi, No wheeze, No rales Cardiovascular: Regular rate, Regular Rhythm, Normal S1, Normal S2, No murmurs Abdomen: Soft, Non Tender, Non-Distended, No Hepato-splenomegaly Extremities: No edema, Capillary Refill Less than 3 Seconds Musculoskeletal: - - Right shoulder in a sling Neurological: Neuro grossly intact, Sensory exam intact to light touch and pain Psych/Mental Status: Normal Affect, Appropriate Vital Signs Temp Pulse Resp BP Pulse Ox 98.1 F 88 16 107/65 97 12/14/18 03:30 12/14/18 05:35 12/14/18 03:30 12/14/18 05:35 12/14/18 03:30 Oxygen Delivery Method Room Air Weight: 134 lb 14.766 oz Body Mass Index (BMI) 24.6 Orthostatic Vital Signs Start: 12/14/18 05:35 Freq: q24h Status: Active Protocol: Activity Type Activity Date Activity User E-Sign Co-Sign Detail Recorded Client Recorded Date Recorded By Document 12/14/18 05:35 MAB [id number] 12/14/18 05:43 MAB 12/14/18 05:35 Orthostatic Vitals Standing -Blood Pressure (90/60-120/80) 124/76 H -Extremity Use Left Arm -Pulse Rate (60-100) 90 Sitting -Blood Pressure (90/60-120/80) 114/75 -Extremity Use Left Arm -Pulse Rate (60-100) 82 Lying -Blood Pressure (90/60-120/80) 107/65 -Extremity Use Left Arm -Pulse Rate (60-100) 88 Intake and Output for Last 24 Hours 12/12/18 12/13/18 12/14/18 23:59 23:59 23:59 Intake Total 3162.5 / 3162.5 395 / 395 Balance 3162.5 / 3162.5 395 / 395 Laboratory Tests Past 24 Hrs 12/13/18 12/13/18 12/14/18 14:12 14:12 05:40 WBC 5.4 5.0 RBC 3.84 L 3.68 L Hgb 10.5 L 10.0 L Hct 34.3 L 33.0 L MCV 89.3 89.7 MCH 27.3 27.2 MCHC 30.6 L 30.3 L RDW Std Deviation 46.0 H 46.1 H RDW Coeff of Fede 14.2 14.2 Plt Count 272 271 MPV 9.7 10.5 Immature Gran % (Auto) 0.200 0.200 Neut % (Auto) 61.2 64.2 Lymph % (Auto) 29.8 25.3 [place] % (Auto) 7.4 8.1 Eos % (Auto) 0.7 1.4 Baso % (Auto) 0.7 0.8 Absolute Neuts (auto) 3.3 3.2 Absolute Lymphs (auto) 1.62 1.25 Nucleated RBC % 0 0 Sodium 141 Potassium 3.4 L Chloride 105 Carbon Dioxide 31.0 Anion Gap 5 BUN 5 L Creatinine 0.72 Estim Creat Clear Calc 85.43 Est GFR (MDRD) Af Amer 118 Est GFR (MDRD) Non-Af 97 BUN/Creatinine Ratio 6.9 L Glucose 97 Calcium 8.8 Total Bilirubin AST ALT Alkaline Phosphatase Troponin I < 0.015 Total Protein Albumin Globulin Albumin/Globulin Ratio 12/14/18 05:40 WBC RBC Hgb Hct MCV MCH MCHC RDW Std Deviation RDW Coeff of Fede Plt Count MPV Immature Gran % (Auto) Neut % (Auto) Lymph % (Auto) [place] % (Auto) Eos % (Auto) Baso % (Auto) Absolute Neuts (auto) Absolute Lymphs (auto) Nucleated RBC % Sodium 140 Potassium 4.2 Chloride 109 H Carbon Dioxide 26.0 Anion Gap 5 BUN 7 Creatinine 0.62 Estim Creat Clear Calc 99.21 Est GFR (MDRD) Af Amer 139 Est GFR (MDRD) Non-Af 115 BUN/Creatinine Ratio 11.2 Glucose 92 Calcium 8.3 L Total Bilirubin 0.30 AST 13 L ALT 16 Alkaline Phosphatase 44 L Troponin I Total Protein 6.5 Albumin 3.2 Globulin 3.3 Albumin/Globulin Ratio 1.0 Discharge Activity: Return to Normal Activity, May not drive while taking narcotic pain medications. Call your doctor if you observe: Fever of 101 or Higher, Shortness of breath, Dizziness, Fainting spells, Swelling in the ankles, Chest pain, Increased palpitations (irregular heartbeat) Home Medications: Medications to take at Discharge omeprazole 40 mg capsule,delayed release 40 mg PO QHS #30 cap 10/11/18 Acetaminophen [Tylenol] 500 - 1,000 mg PO Q6H PRN PRN 12/04/18 Oxycodone HCl/Acetaminophen [Percocet 5-325] 1 - 2 tab PO Q6H PRN PRN 5 Days #28 tab 12/11/18 Zolpidem Tartrate [Ambien] 5 mg PO QHS PRN PRN #14 tab 12/11/18 Primary Care Physician: Kiera Murray MD [Primary Care Provider] - Please follow up with your Primary Care Physician in: 3-5 days Disposition: Home Minutes spent on discharge:: 35 Patient Condition:: Stable Medical Necessity - Tobacco Use Smoking Status: Never smoker Tobacco Use: Non-smoker Meaningful Use Info Meaningful Use Diagnoses (Choose all that apply): None applicable Code Visit OBSV E&M: 59866 Observation care discharge
[2018-12-14 10:42] VITALS: BP 121/84; PULSE 80; RESP 18; TEMP 36.9; O2SAT 98
== END 2018-12-14 10:54 | disposition home or self-care (01) ==
LOC: ED 13:43 → PCU 17:04
PROVIDERS: Admitting Provider Internal Medicine; Emergency Provider Emergency Medicine; Family Provider Family Medicine; PCP Family Medicine; Referring Provider Internal Medicine; Visit Provider Family Medicine
DX: R42 Dizziness and giddiness (principal); K21.9 Gastro-esophageal reflux disease without esophagitis; D68.0 Von Willebrand disease; Z79.899 Other long term (current) drug therapy; M65.20 Calcific tendinitis, unspecified site; E87.6 Hypokalemia
CPT/HCPCS: 36415; 71275; 80048; 80053; 84484; 85025; 93005; 96361; 96374; 96375; 96376; 97162; 97165; 99218; 99285; J7030; Q9967; A4216; G0378; J2405